=== PATIENT | female | born 1980 ===

== ENCOUNTER → 2021-02-28 | Day surgery (SDC) | payer OTHER ==
[~2021-02-28] VITALS: Ht 160 cm; Wt 98.4 kg
[~2021-02-28] MED LIST: AZITHROMYC100 MG/5 M PO; DEXILANT60 MG PO; LISINOPRIL-HCT1 EAC2 PO; PEPCID AC20 MG PO
[2021-02-28 08:04] LABS: HCG (URINE) SCREEN NEGATIVE (NEGATIVE)
[2021-02-28 08:37] LABS: BASOPHIL 0.5 % (0-2); HCT 43.6 % (37.0-47.0); HGB 15.6 g/dl (12.5-16.0); LYMPHOCYTE 34.2 % (15-48); MCH 32.2 pg (25.0-31.0); MCHC 35.8 g/dL (32.0-36.0); MCV 89.9 fL (78.0-100.0); MONOCYTE 5.7 % (0-12); MPV 9.9 fL (6.0-9.5); NEUTROPHIL 58.4 % (41-80); NRBC 0; PLT 296 K/uL (150-400); RBC 4.85 M/uL (4.20-5.40); RDW 11.5 % (11.5-14.0); WBC 9.8 K/uL (4.0-10.5)
== END | disposition home or self-care (01) ==
LOC: FAS 07:41
PROVIDERS: Oral & Maxillofacial Surgery
DX: K02.9 Dental caries, unspecified (principal); K04.7 Periapical abscess without sinus; M79.7 Fibromyalgia; K21.9 Gastro-esophageal reflux disease without esophagitis; K31.84 Gastroparesis; I10 Essential (primary) hypertension; Z79.2 Long term (current) use of antibiotics; Z79.899 Other long term (current) drug therapy; Z88.0 Allergy status to penicillin; Z88.8 Allergy status to other drugs, medicaments and biological substances
CPT/HCPCS: 36415; 84703; 85025; 93005; J1100; J2250; J2405; J2704; J2710; J3010; J7120